=== PATIENT | female | born 1975 | race Caucasian/White ===

== ENCOUNTER → 2019-04-11 07:49 | Outpatient (CLI) | payer OTHER, SELFPAY ==
--- NOTE | ~2019-04-11 | MM_ITS ---
EXAMINATION: MM diagnostic mammo unilat RT HISTORY: Indeterminate right breast calcifications on screening mammogram TECHNIQUE: Additional views of the right breast were performed. CAD analysis was submitted and interp reted. COMPARISON: 03/22/2019 FINDINGS: There are grouped calcifications in the middle third of the breast at the 3:00 location 5 c m from the nipple. Several of the calcifications are amorphous on the craniocaudal view and linear on the mediolateral view, consistent with milk of calcium. A couple of the remaining calcifications gold ear to demonstrate this pattern as well but not definitively. No associated mass is identified. IMPRESSION: 1. Probably benign right breast calcifications. 2. Recommend 6 month follow-up right diagnostic mammogram. BI-RADS category 3, probably benign findings. Reviewed, dictated and finalized at location A. LLOGRAPHER
== END ==
PROVIDERS: PCP Obstetrics & Gynecology; Visit Provider Obstetrics & Gynecology
DX: R92.8 Other abnormal and inconclusive findings on diagnostic imaging of breast (principal)
CPT/HCPCS: 77065

== ENCOUNTER → 2019-11-19 14:12 | Outpatient (CLI) | payer OTHER, SELFPAY ==
--- NOTE | ~2019-11-19 | MM_ITS ---
EXAMINATION: MM diagnostic howard RT w jerod HISTORY: Right breast calcifications TECHNIQUE: Additional 3-D tomosynthesis images of the right breast were performed and synthetic 2-D i mages were generated. CAD analysis was submitted and interpreted. COMPARISON: Comparison to multiple prior studies sequentially, with oldest reviewed study dated 03/22. BREAST PARENCHYMAL COMPOSITION: The breasts are heterogenously dense, which may obscure small masses. FINDINGS: There are benign calcifications located in the lower inner quadrant of the right breast. Th collette calcifications layer on the MLO and mediolateral views, compatible with milk of calcium. No suspi cious masses, calcifications or architectural distortion to suggest malignancy. IMPRESSION: 1. No evidence for malignancy in the right breast. Benign calcifications. 2. Routine yearly screening mammogram and regular clinical breast examination are recommended. BI-RADS Category 2: Benign finding(s). Reviewed, dictated and finalized at location A. IMPRESSION: 1. No evidence for malignancy in the right breast. Benign calcifications. 2. Routine yearly screening mammogram and regular clinical breast examination a re recommended. BI-RADS Category 2: Benign finding(s).
== END ==
PROVIDERS: PCP Family Medicine; Visit Provider Obstetrics & Gynecology
DX: R92.8 Other abnormal and inconclusive findings on diagnostic imaging of breast (principal)
CPT/HCPCS: 77061; 77065; G0279

== ENCOUNTER → 2020-04-30 15:09 | Outpatient (CLI) | payer OTHER, SELFPAY ==
--- NOTE | ~2020-04-30 | MM_ITS ---
EXAMINATION: MM screening [facility] BI w jerod HISTORY: Screening TECHNIQUE: Craniocaudal and mediolateral oblique 3-D tomosynthesis images were obtained and synthetic 2-D images were generated. CAD analysis was submitted and interpreted. COMPARISON: Comparison to multiple prior studies sequentially, with oldest reviewed study dated 03/22. BREAST PARENCHYMAL COMPOSITION: The breasts are heterogeneously dense, which may obscure small masses . FINDINGS: There is a focal asymmetry in the upper inner quadrant of the right breast with associated calcifications. There are focal asymmetries in the upper outer quadrant of the left breast. IMPRESSION: 1. Focal bilateral breast asymmetries described above. Associated calcifications noted in the upper i nner quadrant of the right breast. 2. Additional mammographic views and possible breast ultrasound are recommended. BI-RADS Category 0: Incomplete: Needs additional imaging evaluation. Reviewed, dictated and finalized at location A. D [employer] SPECIALIST IMPRESSION: 1. Focal bilateral breast asymmetries described above. Associated calcification s noted in the upper inner quadrant of the right breast. 2. Additional mammographic views and possible breast ultrasound are recommended . BI-RADS Category 0: Incomplete: Needs additional imaging evaluation.
== END ==
PROVIDERS: PCP Family Medicine; Visit Provider Obstetrics & Gynecology
DX: Z12.31 Encounter for screening mammogram for malignant neoplasm of breast (principal); R92.8 Other abnormal and inconclusive findings on diagnostic imaging of breast
CPT/HCPCS: 77063; 77067

== ENCOUNTER → 2020-06-01 14:41 | Outpatient (CLI) | payer OTHER, SELFPAY ==
--- NOTE | ~2020-06-01 | MMUS_ITS ---
EXAMINATION: MM diagnostic howard BI w jerod, US breast LT limited HISTORY: Indeterminate right breast calcifications and left breast asymmetry on screening mammogram TECHNIQUE: Additional images of the breasts were performed and synthetic 2-D images were generated. C AD analysis was submitted and interpreted. High resolution limited left breast ultrasound was perform ed. COMPARISON: 04/30/2020, 11/19/2019, 04/11/2019, 03/22/2019 BREAST PARENCHYMAL COMPOSITION: The breasts are heterogeneously dense, which may obscure small masses . FINDINGS: MAMMOGRAPHIC FINDINGS: Right breast: There are grouped calcifications in the middle third of the right breast at the 3:00 lo cation which are amorphous on the craniocaudal view and linear on the mediolateral view, consistent w ith milk of calcium. No suspicious mass, calcification or architectural distortion are identified in the right breast. Left breast: Asymmetry is present in the anterior third of the upper left breast 4 cm from the nipple on the mediolateral oblique view which disperses with spot compression. ULTRASOUND: There is a 5 mm x 3 mm oval, circumscribed, parallel, hypoechoic mass with no posterior features or i nternal vascularity in the subareolar aspect of the left breast. IMPRESSION: 1. Benign right breast calcifications and probably benign left breast mass. 2. Recommend 6 month follow-up left diagnostic mammogram and ultrasound. BI-RADS category 3, probably benign findings. Reviewed, dictated and finalized at location A. IMPRESSION: 1. Benign right breast calcifications and probably benign left breast mass. 2. Recommend 6 month follow-up left diagnostic mammogram and ultrasound. BI-RADS category 3, probably benign findings.
== END ==
PROVIDERS: Visit Provider Obstetrics & Gynecology
DX: R92.8 Other abnormal and inconclusive findings on diagnostic imaging of breast (principal)
CPT/HCPCS: 76642; 77062; 77066; G0279

== ENCOUNTER → 2021-01-06 07:42 | Outpatient (CLI) | payer OTHER, SELFPAY ==
--- NOTE | ~2021-01-06 | MMUS_ITS ---
EXAMINATION: MM diagnostic howard LT w jerod, US breast LT limited HISTORY: Six-month follow-up of probably benign left breast mass TECHNIQUE: ML, MLO and craniocaudal 3-D tomosynthesis images of the left breast were performed and sy nthetic 2-D images were generated. CAD analysis was submitted and interpreted. High resolution target ed left breast ultrasound was performed. COMPARISON: 06/01/2020 diagnostic bilateral mammogram and limited left breast ultrasound BREAST PARENCHYMAL COMPOSITION: The breasts are heterogeneously dense, which may obscure small masses . FINDINGS: MAMMOGRAPHIC FINDINGS: No interval suspicious mass or architectural distortion, malignant calcification, skin thickening or retraction or significant new or developing density of the left breast is detected since 06/01/2020. ULTRASOUND: 1:00 3 cm from nipple: 2.7 x 2.3 x 2.9 mm sonolucency with through transmission consistent with small cyst 12:00 2 cm from nipple: Parallel circumscribed hypoechoic 7 x 3.2 x 6.7 mm hypoechoic solid lesion wi thout internal vascularity or posterior shadowing, most likely benign. 12:00 2 cm from nipple: 2.8 x 2.2 x 2.3 mm cyst No suspicious mass or shadowing is detected. IMPRESSION: 1. Probable benign 12:00 lesion 2 cm from nipple 2. 6 month follow-up targeted left breast ultrasound examination is recommended BI-RADS category 3, probably benign findings. Reviewed, dictated and finalized at location A. IMPRESSION: 1. Probable benign 12:00 lesion 2 cm from nipple 2. 6 month follow-up targeted left breast ultrasound examination is recommended BI-RADS category 3, probably benign findings.
== END ==
PROVIDERS: Visit Provider Obstetrics & Gynecology
DX: N60.02 Solitary cyst of left breast (principal); N63.15 Unspecified lump in the right breast, overlapping quadrants
CPT/HCPCS: 76642; 77061; 77065; G0279

== ENCOUNTER → 2021-07-12 15:25 | Outpatient (CLI) | payer OTHER, SELFPAY ==
--- NOTE | ~2021-07-12 | MMUS_ITS ---
EXAMINATION: MM diagnostic howard BI w jerod, US breast BI complete HISTORY: Probable benign left 12:00 breast lesion 2 cm from nipple reported on 01/06/2021 diagnostic left mammogram and limited left breast ultrasound TECHNIQUE: Bilateral full field ML, MLO and CC and left spot compression 3-D tomosynthesis images wer e performed and synthetic 2-D images were generated. Magnification ML, MLO and CC views of right [address]. CAD analysis was submitted and interpreted. High resolution bilateral complete breast ultrasound including all 4 quadrants and subareolar areas was performed. COMPARISON: 01/06/2021 diagnostic left mammogram and limited left breast ultrasound 06/01/2020 bilateral diagnostic mammogram and limited left breast ultrasound , 03/22/2019 bilateral screening mammogram examinations BREAST PARENCHYMAL COMPOSITION: The breasts are heterogeneously dense, which may obscure small masses . FINDINGS: MAMMOGRAPHIC FINDINGS: There is a linear branching array of subtle grouped indeterminate microcalcifications at mid depth in the inner mid right breast (MLO Tomosynthesis image 30/53; CC Tomosynthesis image 24/58). Stereotact ic biopsy is recommended. No reproducible mass, architectural distortion, malignant calcification, skin thickening or retractio n of either breast is noted otherwise. ULTRASOUND: No suspicious solid lesion or shadowing of either breast is evident. Right breast: 1.9 x 3.1 mm cyst Left breast: 1:00 3 cm from nipple: Parallel circumscribed 3.5 x 2.7 x 2.1 mm probable cyst, with through transmis betty. IMPRESSION: 1. Small indeterminate grouped microcalcifications in the linear branching array in the inner mid rig ht breast at mid depth 2. Stereotactic biopsy of mid inner right breast grouped microcalcifications is recommended BI-RADS category 4, suspicious findings. Dr. Strong telephoned the report and stereotactic biopsy recommendation for the right breast on 07/31/[address] Maddi Cagle's Fulfillment Representative Madeline Reviewed, dictated and finalized at location A. IMPRESSION: 1. Small indeterminate grouped microcalcifications in the linear branching arra y in the inner mid right breast at mid depth 2. Stereotactic biopsy of mid inner right breast grouped microcalcifications is recommended BI-RADS category 4, suspicious findings. Dr. Strong telephoned the report and stereotactic biopsy recommendation for the r ight breast on 07/30/2021 [address] Maddi Cagle's Fulfillment Representative Kana wheat
== END ==
PROVIDERS: PCP Family Medicine; Visit Provider Obstetrics & Gynecology
DX: R92.8 Other abnormal and inconclusive findings on diagnostic imaging of breast (principal)
CPT/HCPCS: 76641; 77062; 77066; G0279

== ENCOUNTER 2023-07-15 07:15 | Outpatient (CLI) | payer OTHER, SELFPAY ==
--- NOTE | ~2023-07-15 | US_ITS ---
EXAMINATION: US abdomen complete DATE: 07/15/2023 07:48 INDICATION: ABDOMINAL PAIN TECHNIQUE: Multiple grayscale and Doppler ultrasound images of the abdomen were obtained. COMPARISON: CT abdomen pelvis 05/31/2017. FINDINGS: The visualized portions of the pancreas are normal. The liver is normal with normal echogen icity and echotexture. No surface nodularity. Normal hepatopetal flow in the main portal vein. The ga llbladder is normal with no abnormal wall thickening, pericholecystic fluid or stones. The common arlyn e duct measures 4 mm. There was no sonographic Patel sign. The visualized portions of the aorta and inferior vena cava are normal. The right kidney measures 9.3 x 3.9 x 4.8 cm. The left kidney measures 9.4 x 4.7 x 5.0 cm. The kidney s demonstrate normal parenchymal echogenicity. 7 mm simple right midpole cyst. There is no hydronephr osis. The spleen is normal in appearance and measures cm. IMPRESSION: Normal abdominal ultrasound findings. Reviewed, dictated and finalized at location K.
== END 2023-07-15 07:16 ==
PROVIDERS: PCP Nurse Practitioner Family; Visit Provider Nurse Practitioner Family
DX: J32.9 Chronic sinusitis, unspecified (principal); R10.9 Unspecified abdominal pain
CPT/HCPCS: 76700

== ENCOUNTER 2023-09-05 13:40 | Outpatient (CLI) | payer OTHER, SELFPAY | END 2023-09-05 13:41 | PROVIDERS: PCP Nurse Practitioner Family; Visit Provider Nurse Practitioner Family | DX: M25.561 Pain in right knee (principal); W19.XXXD Unspecified fall, subsequent encounter | CPT/HCPCS: 73564 ==

== ENCOUNTER 2023-09-21 09:14 | Outpatient (CLI) | payer OTHER, SELFPAY ==
--- NOTE | ~2023-09-21 | MR_ITS ---
EXAMINATION: MR knee RT wo con DATE: 09/21/2023 09:43 INDICATION: Unspecified injury to the right lower leg with anterior and medial right knee pain post f all 4 weeks prior TECHNIQUE: Magnetic resonance imaging (MRI) of the right knee was performed without intravenous contr ast. Sequences included coronal PD-weighted FSE, coronal PD-weighted FS FSE, sagittal T2-weighted FS E, sagittal PD-weighted FS FSE and axial PD weighted fat saturated FSE. COMPARISON: None. FINDINGS: Osseous/other: There is thickening and increased fluid extending between the fibers of the anterior patellar sleeve and the underlying patella. There is a small likely laceration of the sleeve at the medial side of th e sleeve medially deep to a posterior high signal intensity along the skin suggesting a prior punctur e wound. This raises concern for either hematoma or infection under the anterior patellar sleeve. The anterior patellar cortex appears to remain intact and without marrow signal change to suggest osteom yelitis. Remaining marrow signal is also normal. No fracture or pathologic marrow replacing process. Medial compartment: Medial meniscus is normal. Articular cartilage is normal. Lateral compartment: Lateral meniscus is normal. Articular cartilage is normal. Patellofemoral compartment: There is partial thickness patellar chondral fissuring involving less than 50% the cartilage thicknes s at the lateral facet and greater than 50% at the patellar apical ridge and lateral side of the medi al facet. Trochlear cartilage is normal. Ligaments and tendons: Anterior and posterior cruciate ligaments are normal. The medial collateral ligament and fibular byron ateral ligament complex are normal. The visualized medial and lateral hamstring tendons as well as th e iliotibial band are normal. There is mild tendinopathy at the medial side of the proximal patellar tendon which appears to represent direct extension of increased signal from the more proximal patella r sleeve which could represent either secondary to inflammation or infection. Fluid: Physiologic amount of fluid in the joint space. No loose osteochondral bodies identified. IMPRESSION: 1. Thickening and increased fluid signal along the anterior patellar sleeve and medial aspect of the proximal patellar tendon. There is suggestion of a possible puncture wound at the overlying skin and associated underlying focal small laceration of the sleeve which raises concern for infection. Correl ate with physical exam and clinical history. No evident associated osteomyelitis. Dr. Brian bell sed these findings with Dr. Mariah Hernandez. . 2. 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 Reviewed, dictated and finalized at location A. IMPRESSION: 1. Thickening and increased fluid signal along the anterior patellar sleeve and medial aspect of the proximal patellar tendon. There is suggestion of a possib le puncture wound at the overlying skin and associated underlying focal small l aceration of the sleeve which raises concern for infection. Correlate with phys ical exam and clinical history. No evident associated osteomyelitis. Dr. Sena rt discussed these findings with Dr. Mariah Hernandez. . 2. Mild patellofemoral osteoarthritis with moderate grade patellar chondromalac ia.
== END 2023-09-21 09:15 ==
LOC: MICIMG 09:14
PROVIDERS: PCP Nurse Practitioner Family; Visit Provider Nurse Practitioner Family
DX: M17.11 Unilateral primary osteoarthritis, right knee (principal); M22.41 Chondromalacia patellae, right knee
CPT/HCPCS: 73721